=== PATIENT | female | born 1980 | race Caucasian/White ===

== ENCOUNTER 2017-11-21 21:02 | Emergency (ER) | payer OTHER ==
[~2017-11-21] VITALS: Ht 162.6 cm; Wt 53.0 kg
[~2017-11-21 21:02] MED LIST: AUGMENTIN875 MG PO; DICLEGIS DR 101 EACH PO; ENDOCET 5-3251 EACH PO; FLONASE16 G1 BOTH NARES; FOLIC ACID1 MG PO; IBUPROFEN800 MG PO; PRENATAL TABLE1 EAC3 PO; ZYRTEC-D1 TABLE1 PO
[2017-11-21] MEDS ORDERED: AMOXICILLIN500 MG PO (22:11)
[2017-11-22 00:17] VITALS: BP 126/81
== END 2017-11-22 00:17 | disposition home or self-care (01) ==
LOC: EME 21:02
DX: J02.0 Streptococcal pharyngitis (principal); R51 Headache; G43.909 Migraine, unspecified, not intractable, without status migrainosus; K21.9 Gastro-esophageal reflux disease without esophagitis; Z91.040 Latex allergy status; Z91.041 Radiographic dye allergy status
CPT/HCPCS: 87651 90; J1100; J1885; J2765; J7030